=== PATIENT | male | born 1945 | race Caucasian/White ===

== ENCOUNTER 2019-09-18 05:02 | Emergency (ER) | payer OTHER ==
[~2019-09-18] VITALS: Ht 185.4 cm; Wt 118.2 kg
[2019-09-18] MEDS ORDERED: bacitracin 15gm ointment TP ONE (05:10)
[2019-09-18 06:23] VITALS: BP 153/88
== END 2019-09-18 06:25 | disposition home or self-care (01) ==
LOC: ER 05:03
DX: S00.93XA Contusion of unspecified part of head, initial encounter (principal); S80.211A Abrasion, right knee, initial encounter; F20.9 Schizophrenia, unspecified; W01.0XXA Fall on same level from slipping, tripping and stumbling without subsequent striking against object, initial encounter; Y93.89 Activity, other specified; Y92.89 Other specified places as the place of occurrence of the external cause; Y99.8 Other external cause status
CPT/HCPCS: 70450; 72125; 99285

== ENCOUNTER 2019-10-03 00:54 | Emergency (ER) | payer OTHER ==
[~2019-10-03] VITALS: Ht 185.4 cm; Wt 125.0 kg
[~2019-10-03 00:54] MED LIST: ACET-2119 PO; ZIPR80CA2 PO
--- NOTE | 2019-10-03 01:19 | NUR ---
Pt states that he has no tylenol at home, that he hasn't gone out to get any tylenol. He seems to not be able to grasp that if he can come here, he can drive to the store as well.
--- NOTE | 2019-10-03 01:23 | NUR ---
Dr Douglas at bedside.
[2019-10-03] MEDS ORDERED: DICL100G15 TOP (01:29)
[2019-10-03 01:39] VITALS: BP 155/86
== END 2019-10-03 01:41 | disposition home or self-care (01) ==
LOC: ER 00:55
DX: M54.2 Cervicalgia (principal); G89.29 Other chronic pain; F20.9 Schizophrenia, unspecified; F41.0 Panic disorder [episodic paroxysmal anxiety]
CPT/HCPCS: 99283

== ENCOUNTER 2019-11-08 02:01 | Emergency (ER) | payer OTHER ==
[~2019-11-08] VITALS: Ht 185.4 cm; Wt 125.0 kg
[~2019-11-08 02:01] MED LIST changes: -ACET-2119 PO; +DICL100G15 TOP
[2019-11-08] MEDS ORDERED: TETanus/Pertussis (Acell)/Diphther VAC/PF (Tdap-Adult) 0.5ml syringe IMVAC ONE (02:10)
[2019-11-08] MEDS ORDERED: LIDOcaine 1% 30ml preserv. free vial IJ ONE (02:10)
[2019-11-08] MEDS ORDERED: normal saline 1000ML IV soln IVB ONE (02:25)
[2019-11-08] MEDS ORDERED: ceFAZolin 1000mg inj IV ONE (02:25)
[2019-11-08] MEDS ORDERED: cefazolin/dext.iso 2gm/100ml 100 ML IV ONE (02:40)
[2019-11-08] MEDS ORDERED: CEPH-572 PO (02:46)
[2019-11-08 02:57] VITALS: BP 135/64
== END 2019-11-08 03:04 | disposition home or self-care (01) ==
LOC: ER 02:02
DX: L03.011 Cellulitis of right finger (principal); Z88.8 Allergy status to other drugs, medicaments and biological substances; Z79.899 Other long term (current) drug therapy
CPT/HCPCS: 10060; 87070; 90471; 90715; 99283; J2001; 87077; 87186

== ENCOUNTER 2019-11-10 01:31 | Emergency (ER) | payer MEDICARE, OTHER ==
[~2019-11-10] VITALS: Ht 185.4 cm; Wt 125.0 kg
[~2019-11-10 01:31] MED LIST changes: +CEPH-572 PO
[2019-11-10 01:50] VITALS: BP 166/94
== END 2019-11-10 01:51 | disposition home or self-care (01) ==
LOC: ER 01:33
DX: M79.675 Pain in left toe(s) (principal); M79.674 Pain in right toe(s); F41.0 Panic disorder [episodic paroxysmal anxiety]; F20.9 Schizophrenia, unspecified; Z79.2 Long term (current) use of antibiotics; Z79.899 Other long term (current) drug therapy
CPT/HCPCS: 99282

== ENCOUNTER 2020-07-10 18:56 | Emergency (ER) | payer OTHER, MEDICARE ==
[~2020-07-10 18:56] MED LIST changes: -CEPH-572 PO
[2020-07-10] MEDS ORDERED: LIDOcaine 1% W/epiNEPHrine 1:200,000 10ml vial IJ ONE (19:35)
[2020-07-10 21:12] VITALS: BP 148/88
== END 2020-07-10 21:14 | disposition home or self-care (01) ==
LOC: ER 18:56
DX: S01.411A Laceration without foreign body of right cheek and temporomandibular area, initial encounter (principal); S01.111A Laceration without foreign body of right eyelid and periocular area, initial encounter; M25.561 Pain in right knee; W19.XXXA Unspecified fall, initial encounter; Y93.9 Activity, unspecified; Y92.89 Other specified places as the place of occurrence of the external cause; Y99.8 Other external cause status
CPT/HCPCS: 12002; 12013; 70450; 70486; 73564; 99285

== ENCOUNTER 2020-07-11 11:47 | Emergency (ER) | payer OTHER, MEDICARE ==
[~2020-07-11] VITALS: Ht 185.4 cm; Wt 93.2 kg
[2020-07-11 12:01] VITALS: BP 162/81
== END 2020-07-11 12:39 | disposition home or self-care (01) ==
LOC: ER 11:48
DX: S01.81XD Laceration without foreign body of other part of head, subsequent encounter (principal); F20.9 Schizophrenia, unspecified; Z88.8 Allergy status to other drugs, medicaments and biological substances; Z79.899 Other long term (current) drug therapy; X58.XXXD Exposure to other specified factors, subsequent encounter
CPT/HCPCS: 99284

== ENCOUNTER 2020-07-13 19:08 | Emergency (ER) | payer OTHER, MEDICARE ==
[~2020-07-13] VITALS: Ht 185.4 cm; Wt 140.4 kg
[2020-07-13 20:16] VITALS: BP 143/72
== END 2020-07-13 22:34 | disposition home or self-care (01) ==
LOC: ER 19:09
DX: G89.29 Other chronic pain (principal); M17.0 Bilateral primary osteoarthritis of knee; F20.9 Schizophrenia, unspecified; Z79.899 Other long term (current) drug therapy
CPT/HCPCS: 99284

== ENCOUNTER 2020-07-15 08:42 | Emergency (ER) | payer OTHER, MEDICARE ==
[~2020-07-15] VITALS: Ht 185.4 cm; Wt 137.8 kg
[2020-07-15 08:51] VITALS: BP 132/73
== END 2020-07-15 09:26 | disposition home or self-care (01) ==
LOC: ER 08:43
DX: S01.411D Laceration without foreign body of right cheek and temporomandibular area, subsequent encounter (principal); F20.9 Schizophrenia, unspecified; Z48.02 Encounter for removal of sutures; Z85.9 Personal history of malignant neoplasm, unspecified; Z79.899 Other long term (current) drug therapy; X58.XXXD Exposure to other specified factors, subsequent encounter
CPT/HCPCS: 99281

== ENCOUNTER 2020-07-18 05:51 | Emergency (ER) | payer OTHER, MEDICARE ==
[~2020-07-18] VITALS: Ht 185.4 cm; Wt 100.0 kg
[2020-07-18 06:21] LABS: BASOPHILS % (AUTO) 0.5 % (0-1); EOSINOPHILS # (AUTO) 0.1 X10'3 (0-0.9); EOSINOPHILS % (AUTO) 2.4 % (0-6); HEMATOCRIT 35.9 % (42.0-52.0); HEMOGLOBIN 12.3 g/dl (14.0-17.9); LYMPHOCYTES # (AUTO) 0.8 X10'3 (1.1-4.8); LYMPHOCYTES % (AUTO) 23.3 % (21-51); MEAN CORPUSCULAR HEMOGLOBIN 31.7 PG (27.0-31.0); MEAN CORPUSCULAR HGB CONC 34.1 g/dL (33.0-36.5); MEAN CORPUSCULAR VOLUME 92.8 FL (78-98); MEAN PLATELET VOLUME 8.3 FL (7.4-10.4); MONOCYTES # (AUTO) 0.7 X10'3 (0-0.9); MONOCYTES % (AUTO) 18.2 % (2-12); NEUTROPHILS % (AUTO) 55.6 % (42-75); PLATELET COUNT 140 X10'3 (140-440); RED BLOOD COUNT 3.87 X10'6 (4.70-6.10); RED CELL DISTRIBUTION WIDTH 13.9 % (11.5-14.5); WHITE BLOOD COUNT 3.6 X10'3 (4.5-11.0)
[2020-07-18 06:38] LABS: ALANINE AMINOTRANSFERASE 43 U/L (12-78); ALBUMIN 3.1 G/DL (3.4-5.0); ALBUMIN/GLOBULIN RATIO 0.9 (1.1-1.5); ALKALINE PHOSPHATASE 112 IU/L (46-116); ANION GAP 5 (8-16); ASPARTATE AMINO TRANSFERASE 33 U/L (10-37); BILIRUBIN,TOTAL 0.4 MG/DL (0.1-1.0); BLOOD UREA NITROGEN 22 MG/DL (7-18); BUN/CREATININE RATIO 27.5 (5.4-32.0); CALCIUM 8.4 MG/DL (8.5-10.1); CHLORIDE 105 MMOL/L (99-107); GLUCOSE 121 MG/DL (70-104); SODIUM 140 MMOL/L (135-145); TOTAL CARBON DIOXIDE 30.5 MMOL/L (24-32); TOTAL PROTEIN 6.5 G/DL (6.4-8.2); eGFR > 90 ML/MIN
[2020-07-18 07:34] LABS: PLATELET ESTIMATE NORMAL; TOTAL CELLS COUNTED 100
[2020-07-18 07:52] VITALS: BP 144/78
== END 2020-07-18 08:30 | disposition home or self-care (01) ==
LOC: ER 05:51
DX: E87.8 Other disorders of electrolyte and fluid balance, not elsewhere classified (principal); F20.9 Schizophrenia, unspecified; G89.29 Other chronic pain; Z88.8 Allergy status to other drugs, medicaments and biological substances; Z79.899 Other long term (current) drug therapy; Z85.9 Personal history of malignant neoplasm, unspecified
CPT/HCPCS: 36415; 71045; 80053; 82948; 83880; 84484; 85007; 85025; 93005; 99285

== ENCOUNTER 2020-07-20 00:33 | Emergency (ER) | payer OTHER, MEDICARE ==
[~2020-07-20] VITALS: Ht 185.4 cm; Wt 138.0 kg
[2020-07-20 01:14] LABS: BASOPHILS % (AUTO) 0.4 % (0-1); EOSINOPHILS # (AUTO) 0.1 X10'3 (0-0.9); HEMATOCRIT 38.2 % (42.0-52.0); HEMOGLOBIN 13.2 g/dl (14.0-17.9); LYMPHOCYTES # (AUTO) 0.8 X10'3 (1.1-4.8); LYMPHOCYTES % (AUTO) 18.6 % (21-51); MEAN CORPUSCULAR HEMOGLOBIN 32.3 PG (27.0-31.0); MEAN CORPUSCULAR HGB CONC 34.6 g/dL (33.0-36.5); MEAN CORPUSCULAR VOLUME 93.3 FL (78-98); MEAN PLATELET VOLUME 8.4 FL (7.4-10.4); MONOCYTES # (AUTO) 0.7 X10'3 (0-0.9); MONOCYTES % (AUTO) 16.6 % (2-12); NEUTROPHILS # (AUTO) 2.8 X10'3 (1.8-7.7); NEUTROPHILS % (AUTO) 62.4 % (42-75); PLATELET COUNT 152 X10'3 (140-440); RED BLOOD COUNT 4.09 X10'6 (4.70-6.10); WHITE BLOOD COUNT 4.4 X10'3 (4.5-11.0)
[2020-07-20 01:28] LABS: ALANINE AMINOTRANSFERASE 37 U/L (12-78); ALBUMIN 3.4 G/DL (3.4-5.0); ALBUMIN/GLOBULIN RATIO 0.9 (1.1-1.5); ALKALINE PHOSPHATASE 121 IU/L (46-116); ANION GAP 4 (8-16); ASPARTATE AMINO TRANSFERASE 27 U/L (10-37); BILIRUBIN,TOTAL 0.5 MG/DL (0.1-1.0); BLOOD UREA NITROGEN 19 MG/DL (7-18); BUN/CREATININE RATIO 26.8 (5.4-32.0); CALCIUM 8.5 MG/DL (8.5-10.1); CHLORIDE 104 MMOL/L (99-107); CREATININE 0.71 MG/DL (0.60-1.10); GLUCOSE 114 MG/DL (70-104); POTASSIUM 3.8 MMOL/L (3.5-5.1); SODIUM 139 MMOL/L (135-145); TOTAL CARBON DIOXIDE 30.7 MMOL/L (24-32); eGFR > 90 ML/MIN
[2020-07-20 02:40] VITALS: BP 155/101
== END 2020-07-20 02:42 | disposition home or self-care (01) ==
LOC: ER 00:33
DX: R42 Dizziness and giddiness (principal); F20.9 Schizophrenia, unspecified; Z85.9 Personal history of malignant neoplasm, unspecified; Z79.899 Other long term (current) drug therapy
CPT/HCPCS: 71045; 80053; 82948; 83880; 84484; 85025; 93005; 99285

== ENCOUNTER 2020-07-22 17:45 | Emergency (ER) | payer OTHER, MEDICARE ==
[~2020-07-22] VITALS: Ht 185.4 cm; Wt 140.9 kg
[2020-07-22 21:27] VITALS: BP 158/71
== END 2020-07-22 21:30 | disposition home or self-care (01) ==
LOC: ER 17:45
DX: H53.9 Unspecified visual disturbance (principal); H91.90 Unspecified hearing loss, unspecified ear; R53.1 Weakness; R20.0 Anesthesia of skin; F20.9 Schizophrenia, unspecified; Z85.9 Personal history of malignant neoplasm, unspecified; Z79.899 Other long term (current) drug therapy
CPT/HCPCS: 70450; 99284

== ENCOUNTER 2020-07-27 23:05 | Emergency (ER) | payer OTHER, MEDICARE ==
[~2020-07-27] VITALS: Ht 185.4 cm; Wt 132.5 kg
[2020-07-27 23:19] VITALS: BP 168/91
== END 2020-07-28 01:20 | disposition home or self-care (01) ==
LOC: ER 23:07
DX: M54.2 Cervicalgia (principal); F20.9 Schizophrenia, unspecified; Z85.9 Personal history of malignant neoplasm, unspecified; Z79.899 Other long term (current) drug therapy
CPT/HCPCS: 72040; 99283

== ENCOUNTER 2020-07-30 03:22 | Emergency (ER) | payer OTHER, MEDICARE ==
[~2020-07-30] VITALS: Ht 185.4 cm; Wt 140.9 kg
[2020-07-30 03:28] VITALS: BP 183/61
[2020-07-30] MEDS ORDERED: bacitracin ointment unit dose packet TP SCH (05:05)
[2020-07-30] MEDS ORDERED: bacitracin ointment unit dose packet TP ONE (05:05)
== END 2020-07-30 05:17 | disposition home or self-care (01) ==
LOC: ER 03:22
DX: M79.645 Pain in left finger(s) (principal); F20.9 Schizophrenia, unspecified; Z79.899 Other long term (current) drug therapy; W45.8XXA Other foreign body or object entering through skin, initial encounter; Y93.89 Activity, other specified; Y92.89 Other specified places as the place of occurrence of the external cause; Y99.8 Other external cause status
CPT/HCPCS: 99281; 99284

== ENCOUNTER 2020-08-01 10:32 | Emergency (ER) | payer OTHER, MEDICARE ==
[~2020-08-01] VITALS: Ht 185.4 cm; Wt 127.6 kg
[2020-08-01 10:41] VITALS: BP 168/72
== END 2020-08-01 12:46 | disposition home or self-care (01) ==
LOC: ER 10:34
DX: M79.645 Pain in left finger(s) (principal); F20.9 Schizophrenia, unspecified; Z79.899 Other long term (current) drug therapy
CPT/HCPCS: 99284

== ENCOUNTER 2020-08-07 00:54 | Emergency (ER) | payer OTHER, MEDICARE ==
[~2020-08-07] VITALS: Ht 185.4 cm; Wt 140.9 kg
[2020-08-07 00:57] VITALS: BP 120/54
--- NOTE | 2020-08-07 01:13 | NUR ---
DRY CRACKED SKIN TO FINGERTIPS
[2020-08-07] MEDS ORDERED: mineral oil/pet hy-phy 85gm ointment TP STA (01:23)
[2020-08-07] MEDS ORDERED: mineral oil/pet hy-phy 85gm ointment TP SCH (01:25)
== END 2020-08-07 01:35 | disposition home or self-care (01) ==
LOC: ER 00:55
DX: M79.645 Pain in left finger(s) (principal); M79.644 Pain in right finger(s); Z85.9 Personal history of malignant neoplasm, unspecified; Z88.8 Allergy status to other drugs, medicaments and biological substances; Z79.899 Other long term (current) drug therapy
CPT/HCPCS: 99284

== ENCOUNTER 2021-01-26 00:05 | Emergency (ER) | payer OTHER, MEDICARE ==
[~2021-01-26] VITALS: Ht 185.4 cm; Wt 150.0 kg
[2021-01-26 00:18] VITALS: BP 156/72
== END 2021-01-26 08:12 | disposition home or self-care (01) ==
LOC: ER 00:06
DX: R21 Rash and other nonspecific skin eruption (principal); F20.9 Schizophrenia, unspecified; Z85.9 Personal history of malignant neoplasm, unspecified; Z79.899 Other long term (current) drug therapy
CPT/HCPCS: 99283

== ENCOUNTER 2021-02-03 10:06 | Emergency (ER) | payer OTHER ==
[~2021-02-03] VITALS: Ht 185.4 cm; Wt 150.0 kg
[2021-02-03 10:44] LABS: BASOPHILS % (AUTO) 0.7 % (0-1); EOSINOPHILS % (AUTO) 1.3 % (0-6); HEMATOCRIT 37.6 % (42.0-52.0); HEMOGLOBIN 12.9 g/dl (14.0-17.9); LYMPHOCYTES # (AUTO) 0.7 X10'3 (1.1-4.8); LYMPHOCYTES % (AUTO) 19.1 % (21-51); MEAN CORPUSCULAR HEMOGLOBIN 30.8 PG (27.0-31.0); MEAN CORPUSCULAR HGB CONC 34.4 g/dL (33.0-36.5); MEAN CORPUSCULAR VOLUME 89.6 FL (78-98); MONOCYTES # (AUTO) 0.6 X10'3 (0-0.9); MONOCYTES % (AUTO) 15.9 % (2-12); NEUTROPHILS # (AUTO) 2.2 X10'3 (1.8-7.7); PLATELET COUNT 161 X10'3 (140-440); RED CELL DISTRIBUTION WIDTH 15.3 % (11.5-14.5); WHITE BLOOD COUNT 3.5 X10'3 (4.5-11.0)
[2021-02-03 11:00] LABS: ALANINE AMINOTRANSFERASE 25 U/L (12-78); ALBUMIN 3.2 G/DL (3.4-5.0); ALBUMIN/GLOBULIN RATIO 0.9 (1.1-1.5); ALKALINE PHOSPHATASE 104 IU/L (46-116); ANION GAP 6 (8-16); ASPARTATE AMINO TRANSFERASE 22 U/L (10-37); BILIRUBIN,TOTAL 0.6 MG/DL (0.1-1.0); BLOOD UREA NITROGEN 13 MG/DL (7-18); BUN/CREATININE RATIO 19.4 (5.4-32.0); CALCIUM 8.2 MG/DL (8.5-10.1); CHLORIDE 104 MMOL/L (99-107); CREATININE 0.67 MG/DL (0.60-1.10); GLUCOSE 107 MG/DL (70-104); POTASSIUM 3.9 MMOL/L (3.5-5.1); SODIUM 141 MMOL/L (135-145); TOTAL CARBON DIOXIDE 31.2 MMOL/L (24-32); TOTAL PROTEIN 6.6 G/DL (6.4-8.2); eGFR > 90 ML/MIN
[2021-02-03] MEDS ORDERED: furosemide 10 MG/1 ML 10ml inj IV ONE (11:15)
[2021-02-03] MEDS ORDERED: CEPH250T PO (11:18)
[2021-02-03] MEDS ORDERED: FURO-150 PO (11:18)
[2021-02-03 12:27] VITALS: BP 138/77
== END 2021-02-03 12:29 | disposition home or self-care (01) ==
LOC: ER 10:07
DX: R60.0 Localized edema (principal); L03.116 Cellulitis of left lower limb; Z88.8 Allergy status to other drugs, medicaments and biological substances; Z79.899 Other long term (current) drug therapy; Z85.9 Personal history of malignant neoplasm, unspecified; Z95.0 Presence of cardiac pacemaker
CPT/HCPCS: 71045; 80053; 83880; 84484; 85025; 93005; 96374; 99285; J1940

== ENCOUNTER 2021-09-09 03:19 | Emergency (ER) | payer OTHER, MEDICARE ==
[~2021-09-09] VITALS: Ht 185.4 cm; Wt 146.4 kg
[~2021-09-09 03:19] MED LIST changes: +CEPH250T PO
[2021-09-09 08:07] VITALS: BP 145/77
== END 2021-09-09 08:13 | disposition home or self-care (01) ==
LOC: ER 03:20
DX: B35.3 Tinea pedis (principal); F20.9 Schizophrenia, unspecified; Z88.8 Allergy status to other drugs, medicaments and biological substances
CPT/HCPCS: 99281

== ENCOUNTER 2021-11-01 04:28 | Emergency (ER) | payer OTHER, MEDICARE ==
[~2021-11-01] VITALS: Ht 185.4 cm; Wt 147.7 kg
[2021-11-01] MEDS ORDERED: DOXYCYCLINE 100MG CAPSULE PO STA (04:36)
[2021-11-01] MEDS ORDERED: DOXY-1 PO (04:38)
[2021-11-01 05:29] VITALS: BP 153/82
== END 2021-11-01 05:30 | disposition home or self-care (01) ==
LOC: ER 04:28
DX: R60.0 Localized edema (principal); L03.116 Cellulitis of left lower limb; L03.115 Cellulitis of right lower limb; F20.9 Schizophrenia, unspecified; Z85.9 Personal history of malignant neoplasm, unspecified; Z60.2 Problems related to living alone; Z79.2 Long term (current) use of antibiotics; Z79.899 Other long term (current) drug therapy
CPT/HCPCS: 99284

== ENCOUNTER 2022-06-29 10:39 | Emergency (ER) | payer OTHER, MEDICARE ==
[~2022-06-29] VITALS: Ht 185.4 cm; Wt 136.3 kg
[~2022-06-29 10:39] MED LIST changes: -CEPH250T PO
[2022-06-29 11:21] LABS: HEMATOCRIT 34.8 % (42.0-52.0); HEMOGLOBIN 12.1 g/dl (14.0-17.9); MEAN CORPUSCULAR HEMOGLOBIN 31.8 PG (27.0-31.0); MEAN CORPUSCULAR HGB CONC 34.7 g/dL (33.0-36.5); MEAN CORPUSCULAR VOLUME 91.7 FL (78-98); MEAN PLATELET VOLUME 9.7 FL (7.4-10.4); PLATELET COUNT 98 X10'3 (140-440); RED CELL DISTRIBUTION WIDTH 15.1 % (11.5-14.5); WHITE BLOOD COUNT 3.4 X10'3 (4.5-11.0)
[2022-06-29 11:46] LABS: ANISOCYTOSIS 1+; PLATELET ESTIMATE DECREASED; TOTAL CELLS COUNTED 100
[2022-06-29 11:58] LABS: ALANINE AMINOTRANSFERASE 20 U/L (12-78); ALBUMIN 3.1 G/DL (3.4-5.0); ALBUMIN/GLOBULIN RATIO 0.9 (1.1-1.5); ALKALINE PHOSPHATASE 90 IU/L (46-116); ANION GAP 10 (8-16); ASPARTATE AMINO TRANSFERASE 20 U/L (10-37); BILIRUBIN,TOTAL 0.7 MG/DL (0.1-1.0); BLOOD UREA NITROGEN 24 MG/DL (7-18); BUN/CREATININE RATIO 31.2 (5.4-32.0); CALCIUM 8.2 MG/DL (8.5-10.1); CHLORIDE 97 MMOL/L (99-107); CREATININE 0.77 MG/DL (0.60-1.10); GLUCOSE 121 MG/DL (70-104); MAGNESIUM 1.7 MG/DL (1.5-2.4); POTASSIUM 3.4 MMOL/L (3.5-5.1); SODIUM 131 MMOL/L (135-145); TOTAL CARBON DIOXIDE 24.2 MMOL/L (24-32); TOTAL PROTEIN 6.4 G/DL (6.4-8.2); eGFR > 90 ML/MIN
[2022-06-29] MEDS ORDERED: POTASSIUM BICARB 20meq eff tab 20 MEQ TABLET.EFF PO ONE (12:00)
[2022-06-29 12:33] VITALS: BP 127/79
[2022-06-29] MEDS ORDERED: NIRM1TAB PO (12:42)
[2022-07-01] MEDS ORDERED: LURA80TA2 PO ×2 (20:20→21:06)
[2022-07-01] MEDS ORDERED: LURA40TA2 PO (21:06)
[2022-07-02] MEDS ORDERED: FURO-150 PO (13:46)
[2022-07-02] MEDS ORDERED: OMEG-5 PO (13:50)
[2022-07-02] MEDS ORDERED: CLOT15CR10 TOP (17:15)
[2022-07-02] MEDS ORDERED: CALC-825 PO (17:15)
[2022-07-02] MEDS ORDERED: CHOL20002 PO (17:15)
== END 2022-06-29 13:07 | disposition home or self-care (01) ==
LOC: ER 10:39
DX: U07.1 COVID-19 (principal); R53.1 Weakness; F20.9 Schizophrenia, unspecified; Z88.8 Allergy status to other drugs, medicaments and biological substances
CPT/HCPCS: 36415; 71045; 80053; 83735; 84443; 85007; 85025; 87502; 87503; 87635; 93005; 99285; C9803

== ENCOUNTER 2022-07-22 01:33 | Emergency (ER) | payer OTHER, MEDICARE ==
[~2022-07-22] VITALS: Ht 185.4 cm; Wt 140.2 kg
[~2022-07-22 01:33] MED LIST changes: +CALC-825 PO; +CHOL20002 PO; +CLOT15CR10 TOP; +FURO-150 PO; +LURA40TA2 PO; +LURA80TA2 PO; +OMEG-5 PO; -ZIPR80CA2 PO
[2022-07-22] MEDS ORDERED: cephalexin 250mg capsule PO ONE (02:05)
[2022-07-22] MEDS ORDERED: CEPH-585 PO (02:06)
[2022-07-22 02:22] VITALS: BP 123/62
== END 2022-07-22 04:10 | disposition home or self-care (01) ==
LOC: ER 01:33
DX: L03.011 Cellulitis of right finger (principal); I50.9 Heart failure, unspecified; Z88.8 Allergy status to other drugs, medicaments and biological substances
CPT/HCPCS: 99284

== ENCOUNTER 2022-07-31 02:42 | Emergency (ER) | payer OTHER, MEDICARE ==
[~2022-07-31] VITALS: Ht 185.4 cm; Wt 140.0 kg
[~2022-07-31 02:42] MED LIST changes: +CEPH-585 PO
[2022-07-31 02:48] VITALS: BP 153/66
[2022-07-31] MEDS ORDERED: MUPI22OI30 TOP (04:58)
== END 2022-07-31 05:44 | disposition home or self-care (01) ==
LOC: ER 02:42
DX: R20.0 Anesthesia of skin (principal); L03.011 Cellulitis of right finger; F20.9 Schizophrenia, unspecified; I50.9 Heart failure, unspecified; Z79.899 Other long term (current) drug therapy; Z60.2 Problems related to living alone
CPT/HCPCS: 99283

== ENCOUNTER 2023-05-14 15:29 | Emergency (ER) | payer OTHER, MEDICARE ==
[~2023-05-14] VITALS: Ht 185.4 cm; Wt 140.0 kg
[2023-05-14 17:07] LABS: BASOPHILS % (AUTO) 0.6 % (0-1); EOSINOPHILS % (AUTO) 0.8 % (0-6); HEMATOCRIT 28.3 % (42.0-52.0); HEMOGLOBIN 9.8 g/dl (14.0-17.9); LYMPHOCYTES % (AUTO) 18.7 % (21-51); MEAN CORPUSCULAR HEMOGLOBIN 31.8 PG (27.0-31.0); MEAN CORPUSCULAR HGB CONC 34.7 g/dL (33.0-36.5); MEAN CORPUSCULAR VOLUME 91.7 FL (78-98); MEAN PLATELET VOLUME 7.5 FL (7.4-10.4); MONOCYTES # (AUTO) 0.7 X10'3 (0-0.9); MONOCYTES % (AUTO) 14.5 % (2-12); NEUTROPHILS # (AUTO) 3.3 X10'3 (1.8-7.7); NEUTROPHILS % (AUTO) 65.4 % (42-75); PLATELET COUNT 290 X10'3 (140-440); RED BLOOD COUNT 3.08 X10'6 (4.70-6.10); RED CELL DISTRIBUTION WIDTH 15.6 % (11.5-14.5); WHITE BLOOD COUNT 5.1 X10'3 (4.5-11.0)
[2023-05-14 17:16] LABS: APTT 29 SECONDS (22-32); INR 1.1 INR; PROTHROMBIN TIME 11.3 SECONDS (9.0-12.0)
[2023-05-14 17:20] LABS: ALANINE AMINOTRANSFERASE 23 U/L (12-78); ALBUMIN 2.7 G/DL (3.4-5.0); ALBUMIN/GLOBULIN RATIO 0.8 (1.1-1.5); ALKALINE PHOSPHATASE 126 IU/L (46-116); ANION GAP 5 (8-16); ASPARTATE AMINO TRANSFERASE 15 U/L (10-37); BILIRUBIN,TOTAL 0.6 MG/DL (0.1-1.0); BLOOD UREA NITROGEN 20 MG/DL (7-18); BUN/CREATININE RATIO 29.4 (10.0-20.0); CALCIUM 8.4 MG/DL (8.5-10.1); CHLORIDE 101 MMOL/L (99-107); CREATININE 0.68 MG/DL (0.60-1.10); GLUCOSE 110 MG/DL (70-104); POTASSIUM 4.2 MMOL/L (3.5-5.1); SODIUM 136 MMOL/L (135-145); TOTAL CARBON DIOXIDE 29.7 MMOL/L (24-32); TOTAL PROTEIN 6.3 G/DL (6.4-8.2); eCRCL 106 ML/MIN; eGFR > 90 ML/MIN
--- NOTE | 2023-05-14 18:50 | NUR ---
received report and assumed c/o pt. pt dc ready, transport being arranged by . Report called to BRIONNA Bray at [facility], will DC IV.
[2023-05-14 19:05] VITALS: BP 154/77; PULSE 71; RESP 18; TEMP 98.2; O2SAT 98
== END 2023-05-14 19:08 | disposition home or self-care (01) ==
LOC: ER 15:30
DX: M79.662 Pain in left lower leg (principal)
CPT/HCPCS: 36415; 80053; 85025; 85610; 85730; 93005; 93971; 99284